=== PATIENT | male | born 1960 | race Caucasian/White ===

== ENCOUNTER 2022-03-08 13:25 | Outpatient (CLI) | payer OTHER, SELFPAY ==
--- NOTE | 2022-03-08 13:45 | MR_ITS ---
[address] [address] Phone:?[phone] Fax:?[phone] Referring Physician Information: Nicholas Parry M.D. [id number] [facility] [address] Phone:?[phone] Fax:?[phone] Patient:Chasity Wei D.O.B:?1960 Sex:?Male Phone:?[phone] [facility] MRN:?[id number] Exam Date:?03/08/2022 ? EXAM: MRI of the RIGHT SHOULDER, without contrast CLINICAL HISTORY: Ongoing right shoulder pain attributed to injury 01/11/2022 moving a snow mobile. Evaluate for rotator cuff tear. COMPARISONS: None available. TECHNICAL: MRI sequences of the right shoulder: Axials: PD, T2 Coronals: PD, STIR, T2 Sagittals: PD, T2 SEDATION: None CONTRAST: None FINDINGS: Bones: No fracture or suspicious bone marrow signal abnormality. Coracoacromial arch: Acromion: No os acromiale. Type I-II acromion. Acromiohumeral space: The bony distance is unremarkable. Coracohumeral space: The bony distance is unremarkable. Acromioclavicular joint: Moderate degenerative changes with moderate inferior osteophytosis/hypertrophy. Coracoclavicular ligament: The coracoclavicular ligament is intact. Rotator cuff muscles/tendons: Supraspinatus and infraspinatus: Complete full-thickness tears of the supraspinatus and infraspinatus tendon insertions with maximal proximal/medial tendon retraction to the level of the glenoid and slight atrophy of the supraspinatus and infraspinatus muscles. Teres minor: Moderate atrophy of the teres minor muscle without teres minor tendon tear. Subscapularis: The subscapularis tendon and muscle are intact. Labrum: Tearing of the labrum from the 12 o'clock position extending posteriorly and inferiorly through the 7 o'clock position posteroinferiorly although it must be noted that the labrum is not evaluated by this nonarthrogram study. Proximal biceps tendon, long head and short heads: Mild tendinopathy of the intra-articular portion of the long head of the biceps tendon. The short head is intact. Glenohumeral joint: Physiologic amount of joint fluid. No full-thickness chondral defect or subchondral bone marrow edema/cystic change is seen. No convincing evidence of capsular edema or thickening although evaluation is suboptimal because of lack of joint distention. Bursae: Subacromial/subdeltoid: The presence of fluid is not unexpected given full- thickness supraspinatus and infraspinatus tendon tears. Subcoracoid: No convincing subcoracoid bursal thickening/bursitis. IMPRESSION: 1. Complete full-thickness tears of the supraspinatus and infraspinatus tendon insertions with maximal proximal/medial tendon retraction to the level of the glenoid and slight atrophy of the supraspinatus and infraspinatus muscles. 2. Labral tear from the 12 o'clock position extending posteriorly and inferiorly through the 7 o'clock position posteroinferiorly. 3. Mild tendinopathy of the intra-articular portion of the long head of the biceps tendon. 4. Moderate acromioclavicular joint osteoarthritis with moderate inferior osteophytosis/hypertrophy. 5. Moderate atrophy of the teres minor muscle without teres minor tendon tear. RCB Electronically signed on 03/08/2022 3:02:00 PM by Yamil Donis M.D.
== END 2022-03-08 13:26 | disposition home or self-care (01) ==
LOC: MRI 13:26
PROVIDERS: PCP Family Medicine; Visit Provider Orthopaedic Surgery
DX: M25.511 Pain in right shoulder (principal); M75.101 Unspecified rotator cuff tear or rupture of right shoulder, not specified as traumatic; S43.401A Unspecified sprain of right shoulder joint, initial encounter; M19.011 Primary osteoarthritis, right shoulder
CPT/HCPCS: 73221

== ENCOUNTER 2022-03-31 09:05 | Outpatient (CLI) | payer OTHER, SELFPAY ==
[2022-03-31 15:42] LABS: SARS PCR* Negative SARS-CoV-2 (Negative)
== END 2022-03-31 09:06 | disposition home or self-care (01) ==
LOC: FBOREF 09:07
PROVIDERS: PCP Family Medicine; Visit Provider Orthopaedic Surgery
DX: Z11.52 Encounter for screening for COVID-19 (principal)
CPT/HCPCS: 87635

== ENCOUNTER 2022-04-01 07:14 | Day surgery (SDC) | payer OTHER, MEDICARE, SELFPAY ==
[2022-04-01] VITALS (18 sets, daily range): BP systolic 87–139; BP diastolic 50–82; PULSE 70–77; RESP 16–20; TEMP 36.3–36.6; O2SAT 90–98
[2022-04-01] MEDS: SODIUM CHLORIDE 0.9 % (FLUSH) 10 ML SYRINGE IVF (08:00)
[2022-04-01] MEDS: LACTATED RINGERS 1000 ML 1,000 ML 100 ML IV ×2 (08:00→11:05)
[2022-04-01] MEDS: OXYCODONE (CR) 10 MG TAB.ER.12H PO (08:00)
[2022-04-01] MEDS: ACETAMINOPHEN 500 MG TABLET 1000 MG PO (08:05)
[2022-04-01] MEDS: CELECOXIB 200 MG CAPSULE PO (08:05)
[2022-04-01] MEDS: fentaNYL 100 MCG/2 ML inj IVP (08:08)
[2022-04-01] MEDS: MIDAZOLAM HCL 1 MG/ML inj IVP (08:08)
--- NOTE | 2022-04-01 08:26 | SUR.PREOP ---
TIME?OUT:?0800, right shoulder PT/RN/MDA?VERIFICATION?OF?SURGICAL?SITE,?PROCEDURE,?AND?CONSENT OBTAINED?PRIOR?TO?INVASIVE?PROCEDURE.
[2022-04-01] MEDS: CEFAZOLIN 2 GM INJ IVP (08:40)
--- NOTE | 2022-04-01 09:12 | P.NB_ITS ---
Nerve Block Nerve Block Date Seen: 04/01/22 Type of block requested by surgeon for post-operative analgesia: interscalene Side: right Time out performed: Yes Verification of patient name: Yes Verification of date of : Yes Site marking: site marked Name of person performing procedure: Steven Continuous monitoring Was continuous monitoring of O2 sat, B/P, secured entrance monitor, recorded every 15 minutes?: Yes Procedure Checklist: sterile prep, needles and gloves Ultrasound guided. Images saved: Yes Medications given in 5ml increments after negative aspiration: Ropivicaine %: 0.5 mL: 15 Needle gauge: 22 Decadron (mg): 10 Precedex (mcg): 25 Patient tolerated procedure well: Yes Block Charges Block Charge (with Pro Fee): Brachial Plexus Use of Ultrasound Machine for Block: Yes- US Guidance/pain block
[2022-04-01] MEDS: SODIUM CHLORIDE IRRIG SOLUTION 3,000 ML, EPINEPHrine 1 MG IRRIGATION (10:27)
--- NOTE | 2022-04-01 11:09 | W.ANESCHARGE ---
Anesthesia Charges Start Date/Time Anesthesia Start Date: 04/01/22 Anesthesia Start Time: 08:24 Stop Date/Time Anesthesia Stop Date: 04/01/22 Anesthesia Stop Time: 11:00 Summary Emergency: No
--- NOTE | 2022-04-01 11:21 | P.ORPRC_ITS ---
Procedure Note Date of procedure: 04/01/22 Procedure: SURGEON: Nicholas Parry MD [employer]ILER: Hillary Rouse PA-C PREOPERATIVE DIAGNOSIS: Right shoulder rotator cuff tear, AC joint arthrosis POSTOPERATIVE DIAGNOSIS: Right shoulder rotator cuff tear, AC joint arthrosis NAME OF OPERATION: Right shoulder arthroscopic subacromial decompression, distal clavicle excision, mini open rotator cuff repair ANESTHESIA: Supraclavicular block plus general endotracheal ESTIMATED BLOOD LOSS: 5 mL COMPLICATIONS: None SPECIMENS: None DRAINS: None PREOPERATIVE ANTIBIOTICS: Ancef 2 grams INDICATIONS: The patient is a 61-year-old male with a history of right shoulder pain secondary to the above diagnoses. Despite appropriate non operative management, they continue to have symptoms. Operative intervention was recommended. The risks, benefits and expected outcomes were discussed in detail. These in cluded but were not limited to: Infection, bleeding, injury to blood vessel or nerve, venous thromboembolism. All questions were answered to their satisfaction. PROCEDURE: A supraclavicular block was placed by Anesthesia. General anesthesia was administered. The patient was placed in the high beach chair position. The right shoulder was prepped and draped in the usual sterile fashion. The glenohumeral joint was infiltrated with 20 mL of normal saline with epinephrine. The posterior portal was established, the arthroscope was introduced. The anterior portal was established, Diagnostic arthroscopy was performed with findings as follows: The biceps and biceps anchor are intact. The anterior and inferior labrum have degenerative fraying. Articular surfaces on the humeral head and glenoid are normal. There are no loose bodies. There is a full-thickness tear of the supraspinatus and the infraspinatus, with retraction to the edge of the articular cartilage on the humeral head. The arthroscope was placed in the subacromial space, the lateral portal was established. The Arthrex Tendoy was used to dissect the acromion free. The CA ligament was recessed off the anterior acromion, the AC joint was exposed. The acromioplasty was performed with the bur in the posterior portal. The bur was then placed in the lateral portal and the lateral and anterior aspect of the acromion were resected. The undersurface of the distal clavicle was resected through the lateral portal. Finally, the bur was placed in the anterior portal and the remainder of the distal clavicle was resected for a total of 10 mm. An accessory anterolateral portal was placed. The subacromial/subdeltoid bursa was aggressively debrided. There is a full-thickness, L-shaped tear of the supraspinatus and infraspinatus. A # 2 FiberWire suture was passed at medial apex of the tear, using the scorpion. A sliding, locking Jordan loop knot was tied for a margin convergence stitch. A fiber link was placed in the leading edge of the rotator cuff x2. Arthroscopic instruments were removed. The accessory anterolateral portal was extended proximally and distally, subcutaneous dissection was taken with el ectrocautery to the deltoid. The deltoid was divided in line with its fibers. The static retractor was placed. The subacromial/subdeltoid bursa was debrided with the Jung scissors. The greater tuberosity was debrided to punctate bleeding bone using the arthroscopic bur. Two knotless Arthrex BioComposite SwiveLock anchors were placed just off the articular surface. Both limbs of the FiberWire and fiber tape were passed using the scorpion. We shuttled the 2 central FiberWire sutures through their respective anchors, over the rotator cuff. We then proceeded with a lateral row of knotless S wiveLock anchors x 2 crossing the FiberTape and incorporating the FiberWire and fiber link into each lateral row anchor. We passed suture on the eyelet in anterior anchor of the lateral row through the leading edge of the rotator cuff. Skin shoveling this suture through the anchor, the lateral row anchor pulled out. This was salvaged by placing a new photogrammetry airplane pilot hole, just proximal to this. We utilized the same FiberTape x2 and fiber link and placed a 5.5 mm SwiveLock anchor. This had excellent purchase. The suture in the eyelet on this anterior, lateral row anchor was passed through the leading edge of the rotator cuff and tied, creating a simple suture. The suture in the eyelet of the posterior, lateral row anchor was cut off and removed such that we did not pull this anchor out. Additionally, the rip stop sutures would not fully tightened down. Rather than risk pulling out the medial row anchors we elected to leave them somewhat laxed. This provides an anatomic, watertight repair of the rotator cuff. There is no tension on the repair with the shoulder at 0? abduction. The wound was irrigated with normal saline off the pump. The deltoid was repaired with an 0 Vicryl in an interrupted [id number] fashion. Subcutaneous tissues were closed with a 3-0 Vicryl. Skin was closed with a 3-0 Monocryl in a subcuticular fashion. A dry dressing, polar care and sling were applied. Sponge and needle counts were correct x2. The patient tolerated the procedure well. There were no apparent complications. They were carefully transferred to the hospital bed and taken to the ostanesthesia care unit in satisfactory condition. PLAN: The patient will be discharged to home. No active range of motion of the shoulder will be allowed for 6 weeks postoperatively. They can work on active range of motion of the elbow, wrist and fingers. They will follow up in the office next week for a wound check and an AP and transscapular Y-view of the shoulder prior to being seen.
--- NOTE | 2022-04-01 11:32 | SUR.PHASEI ---
MDA INTO SEE PT V.S.S PT SLEEPY BUT AWAKES WHEN AROUSED
--- NOTE | 2022-04-01 11:41 | W.ANESCHARGE ---
Anesthesia Charges Start Date/Time Anesthesia Start Date: 04/01/22 Anesthesia Start Time: 08:24 Stop Date/Time Anesthesia Stop Date: 04/01/22 Anesthesia Stop Time: 11:00 Summary Emergency: No
--- NOTE | 2022-04-09 08:50 | SUR.OPER ---
Counts verified with Sylvia and documented appropriately. Chart verification documented as well. Verified all information with Sylvia RN via telephone reback. NGOC Mccord.
== END 2022-04-01 22:00 | disposition home or self-care (01) ==
PROVIDERS: Visit Provider Orthopaedic Surgery
PROC: (CPT 23412; principal; 2022-04-01 08:45)
DX: M75.121 Complete rotator cuff tear or rupture of right shoulder, not specified as traumatic (principal); M19.011 Primary osteoarthritis, right shoulder
CPT/HCPCS: 29826; 29824; 23412; 01630; 64415; 76942; A9270; C1713; J0171; J0330; J0690; J1100; J1720; J2250; J2370; J2405; J2704; J2795; J3010; J7120